=== PATIENT | female | born 1940 | race Caucasian/White ===

== ENCOUNTER 2025-03-09 08:25 | Emergency (ER) | payer MEDICARE, OTHER ==
[2025-03-09 08:48] LABS: APPEARANCE,URINE CLOUDY (CLEAR); BILIRUBIN,URINE NEGATIVE (NEGATIVE); COLOR,URINE YELLOW (YELLOW); GLUCOSE,URINE NEGATIVE (NEGATIVE); KETONES,URINE NEGATIVE (NEGATIVE); LEUKOCYTE ESTERASE,URINE MODERATE (NEGATIVE); NITRITE,URINE NEGATIVE (NEGATIVE); OCCULT BLOOD,URINE SMALL (NEGATIVE); PROTEIN,URINE 30 (NEGATIVE); UROBILINOGEN,URINE 0.2 mg/dL (0.2-1.0)
[2025-03-09 08:57] LABS: AMORPHOUS SEDIMENT,URINE MODERATE /HPF (NOT SEEN); BACTERIA,URINE MANY /HPF (0-FEW/HPF); EPITHELIAL CELLS,URINE FEW /HPF (NOT SEEN); MUCUS,URINE FEW /LPF (NOT SEEN); WBC,URINE SEMI-PACKED /HPF (0-5/HPF)
== END 2025-03-09 09:10 | disposition home or self-care (01) ==
LOC: DL.ED 08:25
DX: N39.0 Urinary tract infection, site not specified (principal)
CPT/HCPCS: 81001; 82947; 87086; 99283